=== PATIENT | male | born 1985 ===

== ENCOUNTER 2020-12-28 16:40 | Outpatient (REF) | payer BC, SELFPAY ==
[2020-12-29 13:51] LABS: COVID-19 RT-PCR UVMMC Result Negative (Negative)
== END 2020-12-28 16:41 | disposition home or self-care (01) ==
LOC: NCHCN 16:40
PROVIDERS: Visit Provider Internal Medicine
DX: Z20.822 Contact with and (suspected) exposure to COVID-19 (principal)
CPT/HCPCS: U0003